=== PATIENT | female | born 1955 | race Caucasian/White ===

== ENCOUNTER 2017-08-08 20:22 | Emergency (ER) | payer BC ==
[2017-08-08 21:15] VITALS: BP 198/104
--- NOTE | 2017-08-08 22:15 | EDM.PDOC ---
ED HPI GENERAL MEDICAL PROBLEM - General Chief Complaint: [employer]MAN Problem Stated Complaint: VAGINAL BULGE Time Seen by Provider: 08/08/17 22:05 Source of Information: Reports: Patient History Limitations: Reports: No Limitations - History of Present Illness INITIAL COMMENTS - FREE TEXT/NARRATIVE: 62-year-old female who has had some slight irritation in the vaginal area over the past several days look down there with severe and noticed a bulge coming from the vagina. There is no significant pain. No fevers or chills. She had an CORPSMAN exam one year ago and nothing was mentioned. Onset: Unknown/Unsure Associated Symptoms: Reports: No Other Symptoms denies pain Pain Score (Numeric/FACES): 0 - Related Data Allergies Allergy/AdvReac Type Severity Reaction Status Date / Time lisinopril Allergy Rash Verified 08/08/17 21:45 Home Meds: Home Meds Acetaminophen/Butalbital/Caff [Fioricet 325-50-40 MG] 1 tab PO Q6H PRN 08/09/14 [History] Calcium Carbonate/Vitamin D3 [Calcium 500-Vit D3 200 Caplet] 1 tab PO DAILY [History] Hydrochlorothiazide [Hydrochlorothiazide] 25 mg PO DAILY 08/09/14 [History] Ketoconazole [Nizoral 2% Crm] 1 applic TOP DAILY 08/09/14 [History] Levothyroxine Sodium [Synthroid] 175 mcg PO DAILY 08/09/14 [History] Verapamil HCl 360 mg PO BEDTIME 08/09/14 [History] metroNIDAZOLE [metroNIDAZOLE 0.75% Cream] 1 applic TOP DAILY 08/09/14 [History] Past Medical History HEENT History: Reports: Impaired Vision Cardiovascular History: Reports: Hypertension Gastrointestinal History: Reports: Chronic Constipation CORPSMAN History: Reports: Neurological History: Reports: Migraines Endocrine/Metabolic History: Reports: Hypothyroidism Dermatologic History: Reports: Eczema - Infectious Disease History Infectious Disease History: Reports: Chicken Pox - Past Surgical History HEENT Surgical History: Reports: Other (See Below) Other HEENT Surgeries/Procedures: benign tumor removed below left ear GI Surgical History: Reports: Colonoscopy Female Surgical History: Reports: Hysterectomy Social & Family History - Tobacco Use Smoking Status *Q: Never Smoker - Caffeine Use Caffeine Use: Reports: Coffee, Soda - Alcohol Use Days Per Week of Alcohol Use: 0 - Recreational Drug Use Recreational Drug Use: No ED ROS GENERAL - Review of Systems Review Of Systems: See Below Constitutional: Denies: Fever, Chills Respiratory: Denies: Shortness of Breath Cardiovascular: Denies: Chest Pain GI/Abdominal: Denies: Abdominal Pain : Reports: Dysuria (Intermittent slight dysuria) Neurological: Reports: No Symptoms ED EXAM, RENAL/ - Physical Exam Exam: See Below Exam Limited By: No Limitations General Appearance: Alert, No Apparent Distress Respiratory/Chest: No Respiratory Distress GI/Abdominal: Non-Tender (Female) Exam: Other (On speculum exam the patient has a defective posterior vaginal wall with a rectocele) Neurological: Alert, Oriented Skin Exam: Warm, Dry Course - Vital Signs Last Recorded V/S: Last Vital Signs Temp 96.8 F 08/08/17 21:49 Pulse 114 H 08/08/17 21:49 Resp 16 08/08/17 21:49 BP 198/104 H 08/08/17 21:49 Pulse Ox 97 08/08/17 21:49 - Re-Assessments/Exams Free Text/Narrative Re-Assessment/Exam: 08/08/17 22:15 Patient has a good relationship with her [facility] doctor at [facility], and would like to discuss this with the provider. No emergent treatment is needed. Departure - Departure Time of Disposition: 22:32 Disposition: Home, Self-Care 01 Condition: Good Clinical Impression: Rectocele with incomplete uterovaginal prolapse - Discharge Information Instructions: Pelvic Organ Prolapse Referrals: Rubens Langford MD [Primary Care Provider] - Forms: ED Department Discharge Care Plan Goals: Make an appointment with your [employer]MAN to discuss treatment for a rectocele.
== END 2017-08-08 22:32 | disposition home or self-care (01) ==
LOC: JP.ED 20:22
DX: N81.2 Incomplete uterovaginal prolapse (principal); I10 Essential (primary) hypertension; E03.9 Hypothyroidism, unspecified; Z88.8 Allergy status to other drugs, medicaments and biological substances; Z79.899 Other long term (current) drug therapy; Z90.710 Acquired absence of both cervix and uterus
CPT/HCPCS: 99283

== ENCOUNTER 2017-12-31 20:33 | Emergency (ER) | payer BC ==
[2017-12-31 21:10] VITALS: BP 149/101
--- NOTE | 2017-12-31 21:20 | EDM.PDOC ---
ED HPI GENERAL MEDICAL PROBLEM - General Chief Complaint: Respiratory Problem Stated Complaint: BREATHING COMPLICATIONS Time Seen by Provider: 12/31/17 21:12 Source of Information: Reports: Patient, Family, RN Notes Reviewed History Limitations: Reports: No Limitations - History of Present Illness INITIAL COMMENTS - FREE TEXT/NARRATIVE: 62-year-old female presents to the emergency department complaint of cough and shortness of breath, she states is been ill for about 24 hours cough is dryand production has progressively gotten worse throughout the day, denies fevers nausea vomiting chest pain or GI symptomatology - Related Data Allergies Allergy/AdvReac Type Severity Reaction Status Date / Time lisinopril Allergy Rash Verified 12/31/17 20:56 Home Meds: Home Meds Acetaminophen/Butalbital/Caff [Fioricet 325-50-40 MG] 1 tab PO Q6H PRN 08/09/14 [History] Calcium Carbonate/Vitamin D3 [Calcium 500-Vit D3 200 Caplet] 1 tab PO DAILY [History] Hydrochlorothiazide 25 mg PO DAILY 08/09/14 [History] Ketoconazole [Nizoral 2% Crm] 1 applic TOP DAILY 08/09/14 [History] Levothyroxine Sodium [Synthroid] 175 mcg PO DAILY 08/09/14 [History] Verapamil HCl 360 mg PO BEDTIME 08/09/14 [History] metroNIDAZOLE [metroNIDAZOLE 0.75% Cream] 1 applic TOP DAILY 08/09/14 [History] Estrogens, Conjugated [Premarin Vaginal Crm] 12/31/17 [History] Hydrocodone/Acetaminophen [Hydrocodon-Acetaminophen 5-325] 12/31/17 [History] Past Medical History HEENT History: Reports: Impaired Vision Cardiovascular History: Reports: Hypertension Gastrointestinal History: Reports: Chronic Constipation [employer] History: Reports: Neurological History: Reports: Migraines Endocrine/Metabolic History: Reports: Hypothyroidism Dermatologic History: Reports: Eczema - Infectious Disease History Infectious Disease History: Reports: Chicken Pox - Past Surgical History HEENT Surgical History: Reports: Other (See Below) Other HEENT Surgeries/Procedures: benign tumor removed below left ear GI Surgical History: Reports: Colonoscopy Female Surgical History: Reports: Hysterectomy Social & Family History - Tobacco Use Smoking Status *Q: Never Smoker - Caffeine Use Caffeine Use: Reports: Coffee, Soda ED ROS GENERAL - Review of Systems Review Of Systems: See Below Constitutional: Denies: Fever, Chills HEENT: Reports: No Symptoms Respiratory: Reports: Shortness of Breath, Cough. Denies: Wheezing, Sputum Cardiovascular: Reports: Dyspnea on Exertion GI/Abdominal: Reports: No Symptoms : Reports: No Symptoms Musculoskeletal: Reports: No Symptoms Skin: Reports: No Symptoms Neurological: Reports: No Symptoms ED EXAM, GENERAL - Physical Exam Exam: See Below Free Text/Narrative:: General: Female, not in any distress, alert and oriented x3 HEENT: head is atraumatic normocephalic, eyes pupils equal round reactive to light, sclera clear no conjunctivitis appreciated. Ears tympanic membranes clear and chavis landmarks and light reflex are present bilaterally canals are clear. Nose no septal deviation, nares are clear, no blood present. Mouth mucosa is moist and pink no erythema or exudate noted in soft palate, tongue is midline uvula is midline, dentition is intact. Neck: Supple no thyromegaly no tracheal deviation. Nodes: Cervical nodes subclavicular nodes nontender no palpable lymphadenopathy noted. Lungs: clear to auscultation bilaterally with symmetrical respirations, no adventitious noise appreciated. CV: Regular rate and rhythm S1 and S2 appreciated no murmurs rubs or gallops noted. Abdomen: Soft, nontender, no palpable masses or organomegaly appreciated, no distention no guarding bowel sounds are present, Neuro: Cranial nerves II through XII grossly intact Skin: Warm and dry, intact Extremities: No lower extremity edema appreciated, Course - Vital Signs Text/Narrative:: curb-65 score is zero Last Recorded V/S: Last Vital Signs Temp 98.8 F 12/31/17 21:04 Pulse 114 H 12/31/17 21:04 Resp 20 12/31/17 21:04 BP 149/101 H 12/31/17 21:04 Pulse Ox 96 12/31/17 21:04 - Orders/Labs/Meds Orders: Active Orders 24 hr Category Date Time Status Chest 2V [CR] Urgent Exams 12/31/17 21:17 Taken UA W/MICROSCOPIC [URIN] Urgent Lab 12/31/17 22:16 Ordered Labs: Laboratory Tests 12/31/17 12/31/17 12/31/17 Range/Units 21:29 21:29 21:29 WBC 15.0 H (4.5-11.0) K/uL RBC 4.85 (3.30-5.50) M/uL Hgb 14.3 (12.0-15.0) g/dL Hct 43.4 (36.0-48.0) % MCV 90 (80-98) fL MCH 30 (27-31) pg MCHC 33 (32-36) % Plt Count 436 H (150-400) K/uL Neut % (Auto) 56 (36-66) % Lymph % (Auto) 31 (24-44) % Ross % (Auto) 12 H (2-6) % Eos % (Auto) 2 (2-4) % Baso % (Auto) 0 (0-1) % Sodium 138 L (140-148) mmol/L Potassium 3.7 (3.6-5.2) mmol/L Chloride 100 (100-108) mmol/L Carbon Dioxide 30 (21-32) mmol/L Anion Gap 11.7 (5.0-14.0) mmol/L BUN 11 (7-18) mg/dL Creatinine 0.9 (0.6-1.0) mg/dL Est Cr Clr Drug Dosing 61.45 mL/min Estimated GFR (MDRD) > 60 (>60) Glucose 112 H (74-106) mg/dL Lactic Acid 2.3 H (0.4-2.0) mmol/L Calcium 10.3 H (8.5-10.1) mg/dL Troponin I (0.000-0.056) ng/mL Urine Color Urine Appearance Urine pH (4.5-8.0) Ur Specific [place] (1.008-1.030) Urine Protein (NEGATIVE) mg/dL Urine Glucose (UA) (NEGATIVE) mg/dL Urine Ketones (NEGATIVE) mg/dL Urine Occult Blood (NEGATIVE) Urine Nitrite (NEGATIVE) Urine Bilirubin (NEGATIVE) Urine Urobilinogen (NORMAL) mg/dL Ur Leukocyte Esterase (NEGATIVE) Urine RBC (0-5) Urine WBC (0-5) Ur Epithelial Cells Amorphous Sediment Urine Bacteria Urine Mucus 12/31/17 12/31/17 Range/Units 21:29 22:16 WBC (4.5-11.0) K/uL RBC (3.30-5.50) M/uL Hgb (12.0-15.0) g/dL Hct (36.0-48.0) % MCV (80-98) fL MCH (27-31) pg MCHC (32-36) % Plt Count (150-400) K/uL Neut % (Auto) (36-66) % Lymph % (Auto) (24-44) % Ross % (Auto) (2-6) % Eos % (Auto) (2-4) % Baso % (Auto) (0-1) % Sodium (140-148) mmol/L Potassium (3.6-5.2) mmol/L Chloride (100-108) mmol/L Carbon Dioxide (21-32) mmol/L Anion Gap (5.0-14.0) mmol/L BUN (7-18) mg/dL Creatinine (0.6-1.0) mg/dL Est Cr Clr Drug Dosing mL/min Estimated GFR (MDRD) (>60) Glucose (74-106) mg/dL Lactic Acid (0.4-2.0) mmol/L Calcium (8.5-10.1) mg/dL Troponin I < 0.017 (0.000-0.056) ng/mL Urine Color Yellow Urine Appearance Clear Urine pH 7.0 (4.5-8.0) Ur Specific [place] 1.010 (1.008-1.030) Urine Protein Negative (NEGATIVE) mg/dL Urine Glucose (UA) Normal (NEGATIVE) mg/dL Urine Ketones Negative (NEGATIVE) mg/dL Urine Occult Blood Large (NEGATIVE) Urine Nitrite Negative (NEGATIVE) Urine Bilirubin Negative (NEGATIVE) Urine Urobilinogen Normal (NORMAL) mg/dL Ur Leukocyte Esterase Large (NEGATIVE) Urine RBC 30-40 H (0-5) Urine WBC 0-5 (0-5) Ur Epithelial Cells Rare Amorphous Sediment Not seen Urine Bacteria Few Urine Mucus Few Departure - Departure Time of Disposition: 22:43 Disposition: Home, Self-Care 01 Condition: Good Clinical Impression: Bronchitis after surgery - Discharge Information Referrals: Rubens Langford MD [Primary Care Provider] - Forms: ED Department Discharge Additional Instructions: Take full course of antibiotics, Please followup with your primary care provider in 3-5 days if not better, please call return to the emergency department with worsening of symptoms. - My Orders Last 24 Hours: My Active Orders 12/31/17 21:17 Chest 2V [CR] Urgent 12/31/17 22:16 UA W/MICROSCOPIC [URIN] Urgent - Assessment/Plan Last 24 Hours: My Active Orders 12/31/17 21:17 Chest 2V [CR] Urgent 12/31/17 22:16 UA W/MICROSCOPIC [URIN] Urgent Plan: Assessment Acuity = acute Site and laterality = bronchitis Etiology = suspect bacterial cause Manifestations = dyspnea Location of injury = Home Lab values = WBC elevated 15.0 consistent leukocytosis, lactic acid elevated 2.3 consistent lactic acidosis, remainder BMP unremarkable urinalysis feels 30- 40 rbc's consistent hematuria chest x-ray I did review films myself I cannot appreciate any acute process, the official read from radiology is pending Plan Elected treat empirically with azithromycin 5 day course, Robitussin-AC 10 mL by mouth every 4-6 hours when necessary 120 mL bottle, follow-up primary care 3- 5 days if no improvement This note was dictated using [employer] voice recognition software please call with any questions on syntax or grammar.
--- NOTE | 2018-01-01 10:26 | CR ---
CHEST: 2 view CLINICAL HISTORY:Cough, SOB COMPARISON:None FINDINGS: Heart size and pulmonary vascularity are normal. No infiltrate effusion or pneumothorax is seen Impression: No acute cardiopulmonary process.
== END 2017-12-31 22:54 | disposition home or self-care (01) ==
LOC: JP.ED 20:33
DX: J40 Bronchitis, not specified as acute or chronic (principal); I10 Essential (primary) hypertension; E03.9 Hypothyroidism, unspecified; Z88.8 Allergy status to other drugs, medicaments and biological substances; Z79.899 Other long term (current) drug therapy
CPT/HCPCS: 36415; 71046; 71046-26; 80048; 81001; 83605; 84484; 85025; 99284

== ENCOUNTER 2020-03-29 09:28 | Emergency (ER) | payer BC, OTHER ==
[2020-03-29] MEDS ORDERED: Albuterol 0.083% 2.5 MG/3 ML Neb Soln NEB ONE ×2 (10:06→14:12)
--- NOTE | 2020-03-29 10:07 | EDM.PDOC ---
ED HPI GENERAL MEDICAL PROBLEM - General Chief Complaint: General Stated Complaint: COUGH Time Seen by Provider: 03/29/20 10:07 Source of Information: Reports: Patient History Limitations: Reports: No Limitations - History of Present Illness INITIAL COMMENTS - FREE TEXT/NARRATIVE: pt has had a 3 week illness and has had 2 zpcks and 2 vertual visits. She is now having a almost continuouis dry cough. She does not have a fever. She is mildly nauiseated but not vomiting. She has no pain in her chest. Onset: Other (pt has alot more coughing today. ) Duration: Hour(s): Location: Reports: Chest, Generalized Associated Symptoms: Reports: Cough, Weakness - Related Data Allergies Allergy/AdvReac Type Severity Reaction Status Date / Time lisinopril Allergy Rash Verified 03/29/20 09:43 Home Meds: Home Meds Acetaminophen/Butalbital/Caff [Fioricet 325-50-40 MG] 1 tab PO Q6H PRN 08/09/14 [History] Calcium Carbonate/Vitamin D3 [Calcium 500-Vit D3 200 Caplet] 1 tab PO DAILY 08/09/14 [History] Hydrochlorothiazide 25 mg PO DAILY 08/09/14 [History] Ketoconazole [Nizoral 2% Crm] 1 applic TOP DAILY 08/09/14 [History] Levothyroxine Sodium [Synthroid] 175 mcg PO DAILY 08/09/14 [History] Verapamil HCl 360 mg PO BEDTIME 08/09/14 [History] metroNIDAZOLE [metroNIDAZOLE 0.75% Cream] 1 applic TOP DAILY 08/09/14 [History] Estrogens, Conjugated [Premarin Vaginal Crm] 1 dose TOP DAILY 12/31/17 [History] Past Medical History HEENT History: Reports: Impaired Vision Cardiovascular History: Reports: Hypertension Gastrointestinal History: Reports: Chronic Constipation Genitourinary History: Reports: None 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: Neurological History: Reports: Migraines Endocrine/Metabolic History: Reports: Hypothyroidism, Obesity/BMI 30+ Hematologic History: Reports: Blood Transfusion(s) Dermatologic History: Reports: Eczema - Infectious Disease History Infectious Disease History: Reports: Measles, Mumps - Past Surgical History Head Surgeries/Procedures: Reports: None HEENT Surgical History: Reports: Eye Surgery, Tonsillectomy, Other (See Below) Other HEENT Surgeries/Procedures: benign tumor removed below left ear Cardiovascular Surgical History: Reports: None GI Surgical History: Reports: Colonoscopy Female Surgical History: Reports: Hysterectomy Endocrine Surgical History: Reports: None Neurological Surgical History: Reports: None Dermatological Surgical History: Reports: None Social & Family History - Tobacco Use Smoking Status *Q: Never Smoker Second Hand Smoke Exposure: No - Caffeine Use Caffeine Use: Reports: Coffee, Soda - Recreational Drug Use Recreational Drug Use: No ED ROS GENERAL - Review of Systems Review Of Systems: See Below Constitutional: Reports: Malaise HEENT: Reports: No Symptoms Respiratory: Reports: Shortness of Breath, Cough Cardiovascular: Reports: No Symptoms Endocrine: Reports: No Symptoms GI/Abdominal: Reports: Nausea : Reports: No Symptoms Musculoskeletal: Reports: No Symptoms, Muscle Pain Neurological: Reports: Dizziness Psychiatric: Reports: No Symptoms ED EXAM, GENERAL - Physical Exam Exam: See Below Free Text/Narrative:: pt woke up feeling dizzy or liteheaded. She was mildly nauseated. She had a almost continuous dry nonproductive cough. Pt has been coughing for the past 3 weeks and she has had 2 vertual visits and 2 zpacks. Exam Limited By: No Limitations General Appearance: Alert, Mild Distress, Other (pupils are equal and reactive. ) Ears: Normal TMs Nose: Normal Inspection Throat/Mouth: Normal Inspection Head: Atraumatic Neck: Normal Inspection Respiratory/Chest: Decreased Breath Sounds, Wheezing Cardiovascular: Regular Rate, Rhythm, Tachycardia GI/Abdominal: Soft, Non-Tender Rectal (Female) Exam: Deferred Back Exam: Normal Inspection Extremities: Normal Inspection Neurological: Alert, Oriented, Normal Cognition Psychiatric: Anxious Course - Vital Signs Last Recorded V/S: Last Vital Signs Temp 36.6 C 03/29/20 09:46 Pulse 94 03/29/20 12:48 Resp 24 H 03/29/20 12:48 BP 141/77 H 03/29/20 12:48 Pulse Ox 94 L 03/29/20 12:48 Orthostatic Blood Pressure [ 111/77 Standing] Orthostatic Blood Pressure [ 127/79 Sitting] Orthostatic Blood Pressure [ 140/86 Supine] - Orders/Labs/Meds Orders: Active Orders 24 hr Category Date Time Status Orthostatic Vital Signs [RC] ASDIRECTED Care 03/29/20 10:05 Active RT Aerosol Therapy [RC] ASDIRECTED Care 03/29/20 10:06 Active RT Aerosol Therapy [RC] ASDIRECTED Care 03/29/20 14:12 Active Chest 2V [CR] Stat Exams 03/29/20 10:05 Taken CULTURE BLOOD [BC] Urgent Lab 03/29/20 10:50 Received CULTURE BLOOD [BC] Urgent Lab 03/29/20 10:55 Received CULTURE URINE [RM] Stat Lab 03/29/20 11:35 Received Acetaminophen [TylenoL] Med 03/29/20 11:42 Active 650 mg PO BEDTIME PRN Sodium Chloride 0.9% [Normal Saline] 1,000 ml Med 03/29/20 10:45 Active IV ASDIRECTED Sodium Chloride 0.9% [Normal Saline] 1,000 ml Med 03/29/20 12:45 Active IV ASDIRECTED Blood Culture x2 Reflex Set [OM.PC] Urgent Oth 03/29/20 10:34 Ordered Medication Orders Acetaminophen (Tylenol) 650 mg PO BEDTIME PRN PRN Reason: Anxiety Last Admin: 03/29/20 11:46 Dose: 650 mg Documented by: MARCOSIAN Sodium Chloride (Normal Saline) 1,000 mls @ 999 mls/hr IV ASDIRECTED VINH Last Admin: 03/29/20 10:56 Dose: 999 mls/hr Documented by: MARCOSIAN Sodium Chloride (Normal Saline) 1,000 mls @ 999 mls/hr IV ASDIRECTED VINH Last Admin: 03/29/20 12:47 Dose: 999 mls/hr Documented by: CINTHIA Labs: Laboratory Tests 03/29/20 03/29/20 03/29/20 Range/Units 10:18 10:18 10:18 WBC (4.5-11.0) K/uL RBC (3.30-5.50) M/uL Hgb (12.0-15.0) g/dL Hct (36.0-48.0) % MCV (80-98) fL MCH (27-31) pg MCHC (32-36) % Plt Count (150-400) K/uL Neut % (Auto) (36-66) % Lymph % (Auto) (24-44) % [place] % (Auto) (2-6) % Eos % (Auto) (2-4) % Baso % (Auto) (0-1) % Neutrophils % (Manual) 81 H (36-66) % Band Neutrophils % 3 L (5-11) % Lymphocytes % (Manual) 6 L (24-44) % Monocytes % (Manual) 10 H (2-6) % WBC Morphology Comment RBC Morph Comment D-Dimer, Quantitative 269 (0.0-400.0) ng/mL Sodium (140-148) mmol/L Potassium (3.6-5.2) mmol/L Chloride (100-108) mmol/L Carbon Dioxide (21-32) mmol/L Anion Gap (5.0-14.0) mmol/L BUN (7-18) mg/dL Creatinine (0.6-1.0) mg/dL Est Cr Clr Drug Dosing mL/min Estimated GFR (MDRD) (>60) Glucose (74-106) mg/dL Lactic Acid (0.4-2.0) mmol/L Calcium (8.5-10.1) mg/dL Total Bilirubin (0.2-1.0) mg/dL Direct Bilirubin (0.0-0.2) mg/dL Indirect Bilirubin AST (15-37) U/L ALT (12-78) U/L Alkaline Phosphatase (46-116) U/L C-Reactive Protein (0.0-0.3) mg/dL Total Protein (6.4-8.2) g/dL Albumin (3.4-5.0) g/dL Globulin (2.3-3.5) g/dL Albumin/Globulin Ratio (1.2-2.2) Procalcitonin 0.11 ng/mL TSH, Ultra Sensitive (0.358-3.740) uIU/mL Urine Color (YELLOW) Urine Appearance (CLEAR) Urine pH (5.0-8.0) Ur Specific [place] (1.008-1.030) Urine Protein (NEGATIVE) mg/dL Urine Glucose (UA) (NEGATIVE) mg/dL Urine Ketones (NEGATIVE) mg/dL Urine Occult Blood (NEGATIVE) Urine Nitrite (NEGATIVE) Urine Bilirubin (NEGATIVE) Urine Urobilinogen (0.2-1.0) EU/dL Ur Leukocyte Esterase (NEGATIVE) Urine RBC (0-5) Urine WBC (0-5) Ur Epithelial Cells Amorphous Sediment Urine Bacteria Urine Mucus SARS-CoV-2 RNA (MARY) (NEGATIVE) 03/29/20 03/29/20 03/29/20 Range/Units 10:22 10:22 10:22 WBC 34.2 H* (4.5-11.0) K/uL RBC 4.97 (3.30-5.50) M/uL Hgb 14.5 (12.0-15.0) g/dL Hct 43.6 (36.0-48.0) % MCV 88 (80-98) fL MCH 29 (27-31) pg MCHC 33 (32-36) % Plt Count 415 H (150-400) K/uL Neut % (Auto) 83 H (36-66) % Lymph % (Auto) 8 L (24-44) % [place] % (Auto) 8 H (2-6) % Eos % (Auto) 0 L (2-4) % Baso % (Auto) 0 (0-1) % Neutrophils % (Manual) (36-66) % Band Neutrophils % (5-11) % Lymphocytes % (Manual) (24-44) % Monocytes % (Manual) (2-6) % WBC Morphology Comment RBC Morph Comment D-Dimer, Quantitative (0.0-400.0) ng/mL Sodium 134 L (140-148) mmol/L Potassium 3.8 (3.6-5.2) mmol/L Chloride 96 L (100-108) mmol/L Carbon Dioxide 25 (21-32) mmol/L Anion Gap 16.8 H (5.0-14.0) mmol/L BUN 18 D (7-18) mg/dL Creatinine 0.9 (0.6-1.0) mg/dL Est Cr Clr Drug Dosing 56.82 mL/min Estimated GFR (MDRD) > 60 (>60) Glucose 111 H (74-106) mg/dL Lactic Acid (0.4-2.0) mmol/L Calcium 9.2 (8.5-10.1) mg/dL Total Bilirubin (0.2-1.0) mg/dL Direct Bilirubin (0.0-0.2) mg/dL Indirect Bilirubin AST (15-37) U/L ALT (12-78) U/L Alkaline Phosphatase (46-116) U/L C-Reactive Protein (0.0-0.3) mg/dL Total Protein (6.4-8.2) g/dL Albumin (3.4-5.0) g/dL Globulin (2.3-3.5) g/dL Albumin/Globulin Ratio (1.2-2.2) Procalcitonin ng/mL TSH, Ultra Sensitive 1.830 (0.358-3.740) uIU/mL Urine Color (YELLOW) Urine Appearance (CLEAR) Urine pH (5.0-8.0) Ur Specific [place] (1.008-1.030) Urine Protein (NEGATIVE) mg/dL Urine Glucose (UA) (NEGATIVE) mg/dL Urine Ketones (NEGATIVE) mg/dL Urine Occult Blood (NEGATIVE) Urine Nitrite (NEGATIVE) Urine Bilirubin (NEGATIVE) Urine Urobilinogen (0.2-1.0) EU/dL Ur Leukocyte Esterase (NEGATIVE) Urine RBC (0-5) Urine WBC (0-5) Ur Epithelial Cells Amorphous Sediment Urine Bacteria Urine Mucus SARS-CoV-2 RNA (MARY) (NEGATIVE) 03/29/20 03/29/20 03/29/20 Range/Units 10:35 10:48 10:52 WBC (4.5-11.0) K/uL RBC (3.30-5.50) M/uL Hgb (12.0-15.0) g/dL Hct (36.0-48.0) % MCV (80-98) fL MCH (27-31) pg MCHC (32-36) % Plt Count (150-400) K/uL Neut % (Auto) (36-66) % Lymph % (Auto) (24-44) % [place] % (Auto) (2-6) % Eos % (Auto) (2-4) % Baso % (Auto) (0-1) % Neutrophils % (Manual) (36-66) % Band Neutrophils % (5-11) % Lymphocytes % (Manual) (24-44) % Monocytes % (Manual) (2-6) % WBC Morphology Comment RBC Morph Comment D-Dimer, Quantitative (0.0-400.0) ng/mL Sodium (140-148) mmol/L Potassium (3.6-5.2) mmol/L Chloride (100-108) mmol/L Carbon Dioxide (21-32) mmol/L Anion Gap (5.0-14.0) mmol/L BUN (7-18) mg/dL Creatinine (0.6-1.0) mg/dL Est Cr Clr Drug Dosing mL/min Estimated GFR (MDRD) (>60) Glucose (74-106) mg/dL Lactic Acid 2.1 H (0.4-2.0) mmol/L Calcium (8.5-10.1) mg/dL Total Bilirubin 0.5 (0.2-1.0) mg/dL Direct Bilirubin 0.15 (0.0-0.2) mg/dL Indirect Bilirubin 0.35 AST 23 (15-37) U/L ALT 29 (12-78) U/L Alkaline Phosphatase 84 (46-116) U/L C-Reactive Protein 2.41 H (0.0-0.3) mg/dL Total Protein 8.2 (6.4-8.2) g/dL Albumin 3.8 (3.4-5.0) g/dL Globulin 4.4 H (2.3-3.5) g/dL Albumin/Globulin Ratio 0.9 L (1.2-2.2) Procalcitonin ng/mL TSH, Ultra Sensitive (0.358-3.740) uIU/mL Urine Color (YELLOW) Urine Appearance (CLEAR) Urine pH (5.0-8.0) Ur Specific [place] (1.008-1.030) Urine Protein (NEGATIVE) mg/dL Urine Glucose (UA) (NEGATIVE) mg/dL Urine Ketones (NEGATIVE) mg/dL Urine Occult Blood (NEGATIVE) Urine Nitrite (NEGATIVE) Urine Bilirubin (NEGATIVE) Urine Urobilinogen (0.2-1.0) EU/dL Ur Leukocyte Esterase (NEGATIVE) Urine RBC (0-5) Urine WBC (0-5) Ur Epithelial Cells Amorphous Sediment Urine Bacteria Urine Mucus SARS-CoV-2 RNA (MARY) (NEGATIVE) 03/29/20 03/29/20 Range/Units 11:09 11:35 WBC (4.5-11.0) K/uL RBC (3.30-5.50) M/uL Hgb (12.0-15.0) g/dL Hct (36.0-48.0) % MCV (80-98) fL MCH (27-31) pg MCHC (32-36) % Plt Count (150-400) K/uL Neut % (Auto) (36-66) % Lymph % (Auto) (24-44) % [place] % (Auto) (2-6) % Eos % (Auto) (2-4) % Baso % (Auto) (0-1) % Neutrophils % (Manual) (36-66) % Band Neutrophils % (5-11) % Lymphocytes % (Manual) (24-44) % Monocytes % (Manual) (2-6) % WBC Morphology Comment RBC Morph Comment D-Dimer, Quantitative (0.0-400.0) ng/mL Sodium (140-148) mmol/L Potassium (3.6-5.2) mmol/L Chloride (100-108) mmol/L Carbon Dioxide (21-32) mmol/L Anion Gap (5.0-14.0) mmol/L BUN (7-18) mg/dL Creatinine (0.6-1.0) mg/dL Est Cr Clr Drug Dosing mL/min Estimated GFR (MDRD) (>60) Glucose (74-106) mg/dL Lactic Acid (0.4-2.0) mmol/L Calcium (8.5-10.1) mg/dL Total Bilirubin (0.2-1.0) mg/dL Direct Bilirubin (0.0-0.2) mg/dL Indirect Bilirubin AST (15-37) U/L ALT (12-78) U/L Alkaline Phosphatase (46-116) U/L C-Reactive Protein (0.0-0.3) mg/dL Total Protein (6.4-8.2) g/dL Albumin (3.4-5.0) g/dL Globulin (2.3-3.5) g/dL Albumin/Globulin Ratio (1.2-2.2) Procalcitonin ng/mL TSH, Ultra Sensitive (0.358-3.740) uIU/mL Urine Color Yellow (YELLOW) Urine Appearance Cloudy A (CLEAR) Urine pH 5.5 (5.0-8.0) Ur Specific [place] >= 1.030 (1.008-1.030) Urine Protein Negative (NEGATIVE) mg/dL Urine Glucose (UA) Negative (NEGATIVE) mg/dL Urine Ketones Negative (NEGATIVE) mg/dL Urine Occult Blood Trace-intact H (NEGATIVE) Urine Nitrite Negative (NEGATIVE) Urine Bilirubin Negative (NEGATIVE) Urine Urobilinogen 0.2 (0.2-1.0) EU/dL Ur Leukocyte Esterase Small H (NEGATIVE) Urine RBC 0-5 (0-5) Urine WBC 5-10 H (0-5) Ur Epithelial Cells Moderate Amorphous Sediment Not seen Urine Bacteria Moderate Urine Mucus Moderate SARS-CoV-2 RNA (MARY) Negative (NEGATIVE) Meds: Medications Generic Name Dose Route Start Last Admin Trade Name Freq PRN Reason Stop Dose Admin Acetaminophen 650 mg 03/29/20 11:42 03/29/20 11:46 Tylenol PO 650 mg BEDTIME PRN Administration Anxiety Sodium Chloride 1,000 mls @ 999 mls/hr 03/29/20 10:45 03/29/20 10:56 Normal Saline IV 999 mls/hr ASDIRECTED VINH Administration Sodium Chloride 1,000 mls @ 999 mls/hr 03/29/20 12:45 03/29/20 12:47 Normal Saline IV 999 mls/hr ASDIRECTED VINH Administration Discontinued Medications Generic Name Dose Route Start Last Admin Trade Name Freq PRN Reason Stop Dose Admin Albuterol 2.5 mg 03/29/20 10:06 03/29/20 10:13 Proventil Neb Soln NEB 03/29/20 10:07 2.5 mg ONETIME ONE Administration Albuterol 2.5 mg 03/29/20 14:12 03/29/20 14:32 Proventil Neb Soln NEB 03/29/20 14:13 2.5 mg ONETIME ONE Administration Benzonatate 200 mg 03/29/20 12:34 03/29/20 12:43 Tessalon Perles PO 03/29/20 12:35 200 mg ONETIME ONE Administration - Re-Assessments/Exams Free Text/Narrative Re-Assessment/Exam: 03/29/20 11:04 pt was found to have a very high wbc at 34,000. She had a chest xray that was clear. Her lactic acid was just borderline. 03/29/20 12:55 pt had a covid 19 test that was neg. A cat scan of the chest was done which results are pending. 03/29/20 13:19 cat scan of the chest is neg. Departure - Departure Time of Disposition: 15:05 Disposition: Home, Self-Care 01 Condition: Fair Clinical Impression: Elevated WBC count, Cough - Discharge Information Referrals: Rubens Langford MD [Primary Care Provider] - Forms: ED Department Discharge Care Plan Goals: push fluids, cool mist humidifier, albuterol inhaler 2 puffs with a associate professor of communication abhishek, kerwin goodwin 1 tab tid for cough, will notify of the urine culturenorco 5/325 q6h prn for the headache. #4 rtc tomorrow for ER for wbc and diff Sepsis Event Note (ED) - Evaluation Sepsis Screening Result: Possible Sepsis Risk - Focused Exam Vital Signs: Vital Signs Temp Pulse Resp BP Pulse Ox 03/29/20 12:48 94 24 H 141/77 H 94 L 03/29/20 10:00 112 H 16 152/91 H 03/29/20 09:46 36.6 C 119 H 16 93/75 95 03/29/20 09:40 36.6 C 119 H 16 93/75 95 - My Orders Last 24 Hours: My Active Orders 03/29/20 10:05 Orthostatic Vital Signs [RC] ASDIRECTED Chest 2V [CR] Stat 03/29/20 10:06 RT Aerosol Therapy [RC] ASDIRECTED 03/29/20 10:34 Blood Culture x2 Reflex Set [OM.PC] Urgent 03/29/20 10:45 Sodium Chloride 0.9% [Normal Saline] 1,000 ml IV ASDIRECTED 03/29/20 10:50 CULTURE BLOOD [BC] Urgent 03/29/20 10:55 CULTURE BLOOD [BC] Urgent 03/29/20 11:35 CULTURE URINE [RM] Stat 03/29/20 11:42 Acetaminophen [TylenoL] 650 mg PO BEDTIME PRN 03/29/20 12:45 Sodium Chloride 0.9% [Normal Saline] 1,000 ml IV ASDIRECTED 03/29/20 14:12 RT Aerosol Therapy [RC] ASDIRECTED - Assessment/Plan Last 24 Hours: My Active Orders 03/29/20 10:05 Orthostatic Vital Signs [RC] ASDIRECTED Chest 2V [CR] Stat 03/29/20 10:06 RT Aerosol Therapy [RC] ASDIRECTED 03/29/20 10:34 Blood Culture x2 Reflex Set [OM.PC] Urgent 03/29/20 10:45 Sodium Chloride 0.9% [Normal Saline] 1,000 ml IV ASDIRECTED 03/29/20 10:50 CULTURE BLOOD [BC] Urgent 03/29/20 10:55 CULTURE BLOOD [BC] Urgent 03/29/20 11:35 CULTURE URINE [RM] Stat 03/29/20 11:42 Acetaminophen [TylenoL] 650 mg PO BEDTIME PRN 03/29/20 12:45 Sodium Chloride 0.9% [Normal Saline] 1,000 ml IV ASDIRECTED 03/29/20 14:12 RT Aerosol Therapy [RC] ASDIRECTED
[2020-03-29] MEDS ORDERED: Sodium Chloride 0.9% 1,000 ML IV SCH ×2 (10:45→12:45)
[2020-03-29] MEDS ORDERED: Acetaminophen 325 MG Tab PO PRN (11:42)
[2020-03-29] MEDS ORDERED: Benzonatate 100 MG Cap PO ONE (12:34)
[2020-03-29 12:48] VITALS: BP 141/77; PULSE 94
--- NOTE | 2020-03-29 13:12 | CRLCT ---
INDICATION: Cough and leukocytosis TECHNIQUE: CT chest without contrast. COMPARISON: None FINDINGS: Lungs and pleura: No suspicious nodules or infiltrates. Small left lateral calcified granuloma present. No pleural effusions, pleural thickening, or pneumothorax. Heart and vasculature: Heart size is normal. Thoracic aorta and pulmonary artery are normal in caliber.Coronary artery atherosclerosis is present. Lymph nodes/mediastinum: No mediastinal, hilar, or axillary adenopathy. Status post thyroidectomy. Chest wall: No masses. Upper abdomen: Normal. Bones: Unremarkable for age. IMPRESSION: 1. Lungs and pleural spaces are clear. No sign of pneumonia. No finding to explain cough for leukocytosis. 2. Coronary artery atherosclerosis. 3. Remainder of the exam is unremarkable. Dictated by Joon Rueda MD @ 03/29/2020 1:10:47 PM Dictated by: Joon Rueda MD @ 03/29/2020 13:10:53 (Electronically Signed)
--- NOTE | 2020-03-29 17:13 | PCM.CONS ---
H&P History of Present Illness - General Date of Service: 03/29/20 Source of Information: Patient, Family, Provider, RN Notes Reviewed History Limitations: Reports: No Limitations - History of Present Illness Initial Comments - Free Text/Narative: Ms. Jasmine is a 65-year-old woman who I been asked to see by Dr. Harry in the emergency department for evaluation of cough, weakness, and leukocytosis. Ms. Jasmine reports that she has experienced a dry nonproductive cough that originates her throat over the past month. She has received 2 courses of azithromycin without significant improvement in her symptoms. She felt well yesterday other than her ongoing cough. This morning she noted additional symptoms of weakness, lightheadedness, low-grade fever, and headache. She presented to the emergency department for further evaluation. She is COVID negative and CT scan of the chest without contrast showed no obvious infiltrates or evidence of edema. She has had no nuchal rigidity and has been afebrile while in the emergency department white blood cell count was obtained and found to be markedly elevated at 34,200. Her obvious evidence of localized infection has been identified. She feels improved after receiving IV fluids. Of interest is her has very similar symptoms and also significant elevation in white blood cell count. - Related Data Allergies/Adverse Reactions: Allergies Allergy/AdvReac Type Severity Reaction Status Date / Time lisinopril Allergy Rash Verified 03/29/20 09:43 Home Medications: Home Meds Acetaminophen/Butalbital/Caff [Fioricet 325-50-40 MG] 1 tab PO Q6H PRN 08/09/14 [History] Calcium Carbonate/Vitamin D3 [Calcium 500-Vit D3 200 Caplet] 1 tab PO DAILY 08/09/14 [History] Hydrochlorothiazide 25 mg PO DAILY 08/09/14 [History] Ketoconazole [Nizoral 2% Crm] 1 applic TOP DAILY 08/09/14 [History] Levothyroxine Sodium [Synthroid] 175 mcg PO DAILY 08/09/14 [History] Verapamil HCl 360 mg PO BEDTIME 08/09/14 [History] metroNIDAZOLE [metroNIDAZOLE 0.75% Cream] 1 applic TOP DAILY 08/09/14 [History] Estrogens, Conjugated [Premarin Vaginal Crm] 1 dose TOP DAILY 12/31/17 [History] Past Medical History HEENT History: Reports: Impaired Vision Cardiovascular History: Reports: Hypertension Gastrointestinal History: Reports: Chronic Constipation Genitourinary History: Reports: None [employer] History: Reports: Neurological History: Reports: Migraines Endocrine/Metabolic History: Reports: Hypothyroidism, Obesity/BMI 30+ Hematologic History: Reports: Blood Transfusion(s) Dermatologic History: Reports: Eczema - Infectious Disease History Infectious Disease History: Reports: Measles, Mumps - Past Surgical History Head Surgeries/Procedures: Reports: None HEENT Surgical History: Reports: Eye Surgery, Tonsillectomy, Other (See Below) Other HEENT Surgeries/Procedures: benign tumor removed below left ear Cardiovascular Surgical History: Reports: None GI Surgical History: Reports: Colonoscopy Female Surgical History: Reports: Hysterectomy Endocrine Surgical History: Reports: None Neurological Surgical History: Reports: None Dermatological Surgical History: Reports: None Social & Family History - Tobacco Use Smoking Status *Q: Never Smoker Second Hand Smoke Exposure: No - Caffeine Use Caffeine Use: Reports: Coffee, Soda - Recreational Drug Use Recreational Drug Use: No H&P Review of Systems - Review of Systems: Review Of Systems: See Below General: Reports: Fever, Weakness, Decreased Appetite. Denies: Chills HEENT: Reports: Headaches. Denies: Dysphasia, Rhinitis, Sinus Congestion, Sore Throat Pulmonary: Reports: Cough. Denies: Shortness of Breath, Wheezing, Pleuritic Chest Pain, Sputum, Hemoptysis Cardiovascular: Reports: No Symptoms Gastrointestinal: Reports: Nausea. Denies: Abdominal Pain, Constipation, Diarrhea, Difficulty Swallowing, Distension, Hematemesis, Hematochezia, Melena, Vomiting Genitourinary: Reports: No Symptoms Musculoskeletal: Reports: No Symptoms Skin: Reports: No Symptoms Psychiatric: Reports: No Symptoms Neurological: Reports: No Symptoms Hematologic/Lymphatic: Reports: No Symptoms Immunologic: Reports: No Symptoms Exam - Exam Exam: See Below - Vital Signs Vital Signs: Last Vital Signs Temp 97.9 F 03/29/20 09:46 Pulse 94 03/29/20 12:48 Resp 24 H 03/29/20 12:48 BP 141/77 H 03/29/20 12:48 Pulse Ox 94 L 03/29/20 12:48 Orthostatic Blood Pressure [ 111/77 Standing] Orthostatic Blood Pressure [ 127/79 Sitting] Orthostatic Blood Pressure [ 140/86 Supine] Weight: 181 lb 14.102 oz - Exam Quality Assessment: Supplemental Oxygen, DVT Prophylaxis General: Alert, Oriented, Cooperative, Mild Distress HEENT: Conjunctiva Clear, Hearing Intact, Mucosa Moist & [place], Normal Nasal Septum, Posterior Pharynx Clear, Pupils Equal Neck: Supple, Trachea Midline, +2 Carotid Pulse wo Bruit Lungs: Clear to Auscultation, Normal Respiratory Effort Cardiovascular: Regular Rate, Regular Rhythm, Normal S1, Normal S2. No: Systolic Murmur, Diastolic Murmur GI/Abdominal Exam: Soft, Non-Tender, No Organomegaly, No Distention Back Exam: Normal Inspection, Full Range of Motion Extremities: Non-Tender, No Pedal Edema Skin: Warm, Dry, Intact Neurological: Cranial Nerves Intact, Strength Equal Bilateral, Normal Speech, Normal Tone, Sensation Intact. No: Focal Deficit Neuro Extensive - Mental Status: Alert, Oriented x3, Normal Mood/Affect, Normal Cognition, Memory Intact - Patient Data Lab Results Last 24 hrs: Laboratory Results - last 24 hr 03/29/20 03/29/20 03/29/20 Range/Units 10:18 10:18 10:18 WBC (4.5-11.0) K/uL RBC (3.30-5.50) M/uL Hgb (12.0-15.0) g/dL Hct (36.0-48.0) % MCV (80-98) fL MCH (27-31) pg MCHC (32-36) % Plt Count (150-400) K/uL Neut % (Auto) (36-66) % Lymph % (Auto) (24-44) % Sebastian % (Auto) (2-6) % Eos % (Auto) (2-4) % Baso % (Auto) (0-1) % Neutrophils % (Manual) 81 H (36-66) % Band Neutrophils % 3 L (5-11) % Lymphocytes % (Manual) 6 L (24-44) % Monocytes % (Manual) 10 H (2-6) % WBC Morphology Comment RBC Morph Comment D-Dimer, Quantitative 269 (0.0-400.0) ng/mL Sodium (140-148) mmol/L Potassium (3.6-5.2) mmol/L Chloride (100-108) mmol/L Carbon Dioxide (21-32) mmol/L Anion Gap (5.0-14.0) mmol/L BUN (7-18) mg/dL Creatinine (0.6-1.0) mg/dL Est Cr Clr Drug Dosing mL/min Estimated GFR (MDRD) (>60) Glucose (74-106) mg/dL Lactic Acid (0.4-2.0) mmol/L Calcium (8.5-10.1) mg/dL Total Bilirubin (0.2-1.0) mg/dL Direct Bilirubin (0.0-0.2) mg/dL Indirect Bilirubin AST (15-37) U/L ALT (12-78) U/L Alkaline Phosphatase (46-116) U/L C-Reactive Protein (0.0-0.3) mg/dL Total Protein (6.4-8.2) g/dL Albumin (3.4-5.0) g/dL Globulin (2.3-3.5) g/dL Albumin/Globulin Ratio (1.2-2.2) Procalcitonin 0.11 ng/mL TSH, Ultra Sensitive (0.358-3.740) uIU/mL Urine Color (YELLOW) Urine Appearance (CLEAR) Urine pH (5.0-8.0) Ur Specific [place] (1.008-1.030) Urine Protein (NEGATIVE) mg/dL Urine Glucose (UA) (NEGATIVE) mg/dL Urine Ketones (NEGATIVE) mg/dL Urine Occult Blood (NEGATIVE) Urine Nitrite (NEGATIVE) Urine Bilirubin (NEGATIVE) Urine Urobilinogen (0.2-1.0) EU/dL Ur Leukocyte Esterase (NEGATIVE) Urine RBC (0-5) Urine WBC (0-5) Ur Epithelial Cells Amorphous Sediment Urine Bacteria Urine Mucus SARS-CoV-2 RNA (MARY) (NEGATIVE) 03/29/20 03/29/20 03/29/20 Range/Units 10:22 10:22 10:22 WBC 34.2 H* (4.5-11.0) K/uL RBC 4.97 (3.30-5.50) M/uL Hgb 14.5 (12.0-15.0) g/dL Hct 43.6 (36.0-48.0) % MCV 88 (80-98) fL MCH 29 (27-31) pg MCHC 33 (32-36) % Plt Count 415 H (150-400) K/uL Neut % (Auto) 83 H (36-66) % Lymph % (Auto) 8 L (24-44) % Sebastian % (Auto) 8 H (2-6) % Eos % (Auto) 0 L (2-4) % Baso % (Auto) 0 (0-1) % Neutrophils % (Manual) (36-66) % Band Neutrophils % (5-11) % Lymphocytes % (Manual) (24-44) % Monocytes % (Manual) (2-6) % WBC Morphology Comment RBC Morph Comment D-Dimer, Quantitative (0.0-400.0) ng/mL Sodium 134 L (140-148) mmol/L Potassium 3.8 (3.6-5.2) mmol/L Chloride 96 L (100-108) mmol/L Carbon Dioxide 25 (21-32) mmol/L Anion Gap 16.8 H (5.0-14.0) mmol/L BUN 18 D (7-18) mg/dL Creatinine 0.9 (0.6-1.0) mg/dL Est Cr Clr Drug Dosing 56.82 mL/min Estimated GFR (MDRD) > 60 (>60) Glucose 111 H (74-106) mg/dL Lactic Acid (0.4-2.0) mmol/L Calcium 9.2 (8.5-10.1) mg/dL Total Bilirubin (0.2-1.0) mg/dL Direct Bilirubin (0.0-0.2) mg/dL Indirect Bilirubin AST (15-37) U/L ALT (12-78) U/L Alkaline Phosphatase (46-116) U/L C-Reactive Protein (0.0-0.3) mg/dL Total Protein (6.4-8.2) g/dL Albumin (3.4-5.0) g/dL Globulin (2.3-3.5) g/dL Albumin/Globulin Ratio (1.2-2.2) Procalcitonin ng/mL TSH, Ultra Sensitive 1.830 (0.358-3.740) uIU/mL Urine Color (YELLOW) Urine Appearance (CLEAR) Urine pH (5.0-8.0) Ur Specific [place] (1.008-1.030) Urine Protein (NEGATIVE) mg/dL Urine Glucose (UA) (NEGATIVE) mg/dL Urine Ketones (NEGATIVE) mg/dL Urine Occult Blood (NEGATIVE) Urine Nitrite (NEGATIVE) Urine Bilirubin (NEGATIVE) Urine Urobilinogen (0.2-1.0) EU/dL Ur Leukocyte Esterase (NEGATIVE) Urine RBC (0-5) Urine WBC (0-5) Ur Epithelial Cells Amorphous Sediment Urine Bacteria Urine Mucus SARS-CoV-2 RNA (MARY) (NEGATIVE) 03/29/20 03/29/20 03/29/20 Range/Units 10:35 10:48 10:52 WBC (4.5-11.0) K/uL RBC (3.30-5.50) M/uL Hgb (12.0-15.0) g/dL Hct (36.0-48.0) % MCV (80-98) fL MCH (27-31) pg MCHC (32-36) % Plt Count (150-400) K/uL Neut % (Auto) (36-66) % Lymph % (Auto) (24-44) % Sebastian % (Auto) (2-6) % Eos % (Auto) (2-4) % Baso % (Auto) (0-1) % Neutrophils % (Manual) (36-66) % Band Neutrophils % (5-11) % Lymphocytes % (Manual) (24-44) % Monocytes % (Manual) (2-6) % WBC Morphology Comment RBC Morph Comment D-Dimer, Quantitative (0.0-400.0) ng/mL Sodium (140-148) mmol/L Potassium (3.6-5.2) mmol/L Chloride (100-108) mmol/L Carbon Dioxide (21-32) mmol/L Anion Gap (5.0-14.0) mmol/L BUN (7-18) mg/dL Creatinine (0.6-1.0) mg/dL Est Cr Clr Drug Dosing mL/min Estimated GFR (MDRD) (>60) Glucose (74-106) mg/dL Lactic Acid 2.1 H (0.4-2.0) mmol/L Calcium (8.5-10.1) mg/dL Total Bilirubin 0.5 (0.2-1.0) mg/dL Direct Bilirubin 0.15 (0.0-0.2) mg/dL Indirect Bilirubin 0.35 AST 23 (15-37) U/L ALT 29 (12-78) U/L Alkaline Phosphatase 84 (46-116) U/L C-Reactive Protein 2.41 H (0.0-0.3) mg/dL Total Protein 8.2 (6.4-8.2) g/dL Albumin 3.8 (3.4-5.0) g/dL Globulin 4.4 H (2.3-3.5) g/dL Albumin/Globulin Ratio 0.9 L (1.2-2.2) Procalcitonin ng/mL TSH, Ultra Sensitive (0.358-3.740) uIU/mL Urine Color (YELLOW) Urine Appearance (CLEAR) Urine pH (5.0-8.0) Ur Specific [place] (1.008-1.030) Urine Protein (NEGATIVE) mg/dL Urine Glucose (UA) (NEGATIVE) mg/dL Urine Ketones (NEGATIVE) mg/dL Urine Occult Blood (NEGATIVE) Urine Nitrite (NEGATIVE) Urine Bilirubin (NEGATIVE) Urine Urobilinogen (0.2-1.0) EU/dL Ur Leukocyte Esterase (NEGATIVE) Urine RBC (0-5) Urine WBC (0-5) Ur Epithelial Cells Amorphous Sediment Urine Bacteria Urine Mucus SARS-CoV-2 RNA (MARY) (NEGATIVE) 03/29/20 03/29/20 Range/Units 11:09 11:35 WBC (4.5-11.0) K/uL RBC (3.30-5.50) M/uL Hgb (12.0-15.0) g/dL Hct (36.0-48.0) % MCV (80-98) fL MCH (27-31) pg MCHC (32-36) % Plt Count (150-400) K/uL Neut % (Auto) (36-66) % Lymph % (Auto) (24-44) % Sebastian % (Auto) (2-6) % Eos % (Auto) (2-4) % Baso % (Auto) (0-1) % Neutrophils % (Manual) (36-66) % Band Neutrophils % (5-11) % Lymphocytes % (Manual) (24-44) % Monocytes % (Manual) (2-6) % WBC Morphology Comment RBC Morph Comment D-Dimer, Quantitative (0.0-400.0) ng/mL Sodium (140-148) mmol/L Potassium (3.6-5.2) mmol/L Chloride (100-108) mmol/L Carbon Dioxide (21-32) mmol/L Anion Gap (5.0-14.0) mmol/L BUN (7-18) mg/dL Creatinine (0.6-1.0) mg/dL Est Cr Clr Drug Dosing mL/min Estimated GFR (MDRD) (>60) Glucose (74-106) mg/dL Lactic Acid (0.4-2.0) mmol/L Calcium (8.5-10.1) mg/dL Total Bilirubin (0.2-1.0) mg/dL Direct Bilirubin (0.0-0.2) mg/dL Indirect Bilirubin AST (15-37) U/L ALT (12-78) U/L Alkaline Phosphatase (46-116) U/L C-Reactive Protein (0.0-0.3) mg/dL Total Protein (6.4-8.2) g/dL Albumin (3.4-5.0) g/dL Globulin (2.3-3.5) g/dL Albumin/Globulin Ratio (1.2-2.2) Procalcitonin ng/mL TSH, Ultra Sensitive (0.358-3.740) uIU/mL Urine Color Yellow (YELLOW) Urine Appearance Cloudy A (CLEAR) Urine pH 5.5 (5.0-8.0) Ur Specific [place] >= 1.030 (1.008-1.030) Urine Protein Negative (NEGATIVE) mg/dL Urine Glucose (UA) Negative (NEGATIVE) mg/dL Urine Ketones Negative (NEGATIVE) mg/dL Urine Occult Blood Trace-intact H (NEGATIVE) Urine Nitrite Negative (NEGATIVE) Urine Bilirubin Negative (NEGATIVE) Urine Urobilinogen 0.2 (0.2-1.0) EU/dL Ur Leukocyte Esterase Small H (NEGATIVE) Urine RBC 0-5 (0-5) Urine WBC 5-10 H (0-5) Ur Epithelial Cells Moderate Amorphous Sediment Not seen Urine Bacteria Moderate Urine Mucus Moderate SARS-CoV-2 RNA (MARY) Negative (NEGATIVE) Result Diagrams: 03/29/20 10:22 03/29/20 10:22 Sepsis Event Note - Evaluation Sepsis Screening Result: Possible Sepsis Risk - Focused Exam Vital Signs: Vital Signs Temp Pulse Resp BP Pulse Ox 03/29/20 12:48 94 24 H 141/77 H 94 L 03/29/20 10:00 112 H 16 152/91 H 03/29/20 09:46 97.9 F 119 H 16 93/75 95 03/29/20 09:40 97.9 F 119 H 16 93/75 95 Consult PN Assessment/Plan Procedures: Procedures ASSAY OF LACTIC ACID (12/31/17) ASSAY OF TROPONIN QUANT (12/31/17) COMPLETE CBC W/AUTO DIFF WBC (12/31/17) EMERGENCY DEPT VISIT (12/31/17) EMERGENCY DEPT VISIT (08/08/17) METABOLIC PANEL TOTAL CA (12/31/17) ROUTINE VENIPUNCTURE (12/31/17) THER/PROPH/DIAG INJ SC/IM (08/09/14) URINALYSIS AUTO W/SCOPE (12/31/17) X-RAY EXAM CHEST 2 VIEWS (12/31/17) Problem List Initiated/Reviewed/Updated: Yes Plan: ASSESSMENT AND RECOMMENDATIONS LEUKOCYTOSIS-associated with nausea, headache, lightheadedness/weakness and low- grade fever. White blood cell count is markedly elevated, not explained by findings on physical examination or evaluation in the emergency department. Of note is that her has similar symptoms and also leukocytosis. They deny any common exposures. CT scan of the chest unremarkable. Cough is been chronic and is not significantly worse. No other localized symptoms of infection have been identified. COVID test is negative. She is feeling somewhat better after hydration. -Discharged home, patient lives only a few blocks from the hospital and will return immediately if she develops increasing symptoms and/or fever -Repeat white blood cell count and differential in a.m. COUGH-present for the past month, no improvement with 2 courses of antibiotic therapy. Cough seems to originate in her throat and is likely related to allergies with postnasal drainage. CT scan of the chest was negative for any significant abnormality. Requesting Provider: [facility] [place] Date Consult Requested: 03/29/20 Reason for Consult: Leukocytosis, low-grade fever, nausea, lightheadedness Patient History Reviewed: Yes Notified Requestor: Yes
--- NOTE | 2020-03-30 10:17 | CR ---
CHEST: 2 view CLINICAL HISTORY:Cough COMPARISON:None FINDINGS: The heart size, pulmonary vascularity and hilar structures are normal. No infiltrate effusion or pneumothorax is seen. IMPRESSION: No acute cardiopulmonary process.
== END 2020-03-29 15:20 | disposition home or self-care (01) ==
LOC: JP.ED 09:28
DX: R05 Cough (principal); D72.829 Elevated white blood cell count, unspecified; I10 Essential (primary) hypertension; E03.9 Hypothyroidism, unspecified; E66.9 Obesity, unspecified; Z68.30 Body mass index [BMI] 30.0-30.9, adult; Z88.8 Allergy status to other drugs, medicaments and biological substances; Z79.899 Other long term (current) drug therapy; Z20.828 Contact with and (suspected) exposure to other viral communicable diseases
CPT/HCPCS: 36415; 71046; 71250; 80048; 80076; 81001; 83605; 84145; 84443; 85025; 85379; 86140; 87040; 87086; 87635; 94640; 96360; 96361; 99284; A9270; J7030; 99282; U0002

== ENCOUNTER 2020-04-15 19:50 | Emergency (ER) | payer BC, OTHER ==
[2020-04-15 20:16] VITALS: BP 156/93; PULSE 101
--- NOTE | 2020-04-15 20:22 | EDM.PDOC ---
<Nasima Hickman - Last Filed: 04/15/20 21:41> ED HPI GENERAL MEDICAL PROBLEM - General Chief Complaint: General Stated Complaint: NAUSEATED, MIGRAINES Time Seen by Provider: 04/15/20 20:25 Source of Information: Reports: Patient, Old Records, RN, RN Notes Reviewed, Significant Other - History of Present Illness INITIAL COMMENTS - FREE TEXT/NARRATIVE: Pt and spouse here tonight regarding the ongoing chronic cough, migraines, and nausea. Pt had seen Dr Langford as f/u from last ER visit for re-check on WBC. Was referred to Neurologist for insomnia and migraines. Per pt, it has only been 10 days since Neuro consult and migraines persist as does the cough. Pt indicates does tolerate PO liquids but does not have an appetite. Denies n/v, chills, sweats, or fever. Duration: Chronic, Recurring - Related Data Allergies Allergy/AdvReac Type Severity Reaction Status Date / Time lisinopril Allergy Rash Verified 03/29/20 09:43 Home Meds: Home Meds Acetaminophen/Butalbital/Caff [Fioricet 325-50-40 MG] 1 tab PO Q6H PRN 08/09/14 [History] Calcium Carbonate/Vitamin D3 [Calcium 500-Vit D3 200 Caplet] 1 tab PO DAILY 08/09/14 [History] Hydrochlorothiazide 25 mg PO DAILY 08/09/14 [History] Ketoconazole [Nizoral 2% Crm] 1 applic TOP DAILY 08/09/14 [History] Levothyroxine Sodium [Synthroid] 175 mcg PO DAILY 08/09/14 [History] Verapamil HCl 360 mg PO BEDTIME 08/09/14 [History] metroNIDAZOLE [metroNIDAZOLE 0.75% Cream] 1 applic TOP DAILY 08/09/14 [History] Estrogens, Conjugated [Premarin Vaginal Crm] 1 dose TOP DAILY 12/31/17 [History] SUMAtriptan [Imitrex] 50 mg PO ASDIRECTED PRN 04/15/20 [History] Zonisamide [Zonegran] 25 mg PO BEDTIME 04/15/20 [History] guaiFENesin/Codeine Phosphate [Virtussin AC 10-100 mg/5 ml Lq] 5 ml PO ASDIRECTED PRN 04/15/20 [History] ED ROS GENERAL - Review of Systems Review Of Systems: See Below Constitutional: Reports: Weakness, Decreased Appetite HEENT: Reports: No Symptoms Respiratory: Reports: Cough, Sputum (Dry cough despite cough medicaiton ) Cardiovascular: Reports: No Symptoms Endocrine: Reports: No Symptoms GI/Abdominal: Reports: Decreased Appetite : Reports: No Symptoms Musculoskeletal: Reports: No Symptoms Skin: Reports: No Symptoms Neurological: Reports: Weakness Psychiatric: Reports: No Symptoms Hematologic/Lymphatic: Reports: No Symptoms Immunologic: Reports: No Symptoms ED EXAM, GENERAL - Physical Exam Exam: See Below Exam Limited By: No Limitations General Appearance: Alert, WD/WN Head: Normocephalic Neck: Normal Inspection, Supple, Non-Tender, Full Range of Motion Respiratory/Chest: No Respiratory Distress, Lungs Clear, Normal Breath Sounds, No Accessory Muscle Use Cardiovascular: Normal Peripheral Pulses, Regular Rate, Rhythm, No Murmur, No Rub GI/Abdominal: Normal Bowel Sounds, Soft, Non-Tender (Female) Exam: Deferred Rectal (Female) Exam: Deferred Neurological: Alert, Oriented, CN II-XII Intact, Normal Cognition Psychiatric: Normal Affect, Normal Mood Skin Exam: Warm, Dry, Intact Lymphatic: No Adenopathy Course - Radiology Interpretation Free Text/Narrative:: Spoke with pt and advised CXR looked great. No acute processes. - Re-Assessments/Exams Free Text/Narrative Re-Assessment/Exam: 04/15/20 21:41 Will give 125 mg solu medrol IVP and 4 mg IVP Zofran before d/c home. Departure - Departure Disposition: Home, Self-Care 01 Condition: Good Clinical Impression: Viral syndrome, Cough Elevated WBC count Qualifiers: Eosinophilia type: unspecified eosinophilia - Discharge Information *PRESCRIPTION DRUG MONITORING PROGRAM REVIEWED*: Not Applicable *COPY OF PRESCRIPTION DRUG MONITORING REPORT IN PATIENT IFEOMA: Not Applicable Instructions: Cough, Adult, [id number], Hand Washing, [id number], Infection Prevention in the Home, Viral Illness, Adult Referrals: Rubens Langford MD [Primary Care Provider] - Forms: ED Department Discharge Care Plan Goals: Please take medications as prescribed from todays visit: The steroid dose pack will help with inflammation and reduce the inflammatory process that may be present. The Zofran ODT will help with nausea. Be sure to get plenty of rest and drink fluids. Allow for foods that will easily digest such as jello, soup, yogurt, broth,or meal supplements for calories. If the symptoms persist, please follow up with your provider and/or neurology. - Problem List & Annotations (1) Viral syndrome SNOMED Code(s): 98582035 Code(s): B34.9 - VIRAL INFECTION, UNSPECIFIED Status: Acute Priority: High - Assessment/Plan Plan: Please take medications as prescribed from todays visit: The steroid dose pack will help with inflammation and reduce the inflammatory process that may be present. The Zofran ODT will help with nausea. Be sure to get plenty of rest and drink fluids. Allow for foods that will easily digest such as jello, soup, yogurt, broth,or meal supplements for calories. If the symptoms persist, please follow up with your provider and/or neurology. 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: Neurological History: Reports: Migraines Endocrine/Metabolic History: Reports: Hypothyroidism, Obesity/BMI 30+ Hematologic History: Reports: Blood Transfusion(s) Dermatologic History: Reports: Eczema - Infectious Disease History Infectious Disease History: Reports: Measles, Mumps - Past Surgical History Head Surgeries/Procedures: Reports: None HEENT Surgical History: Reports: Eye Surgery, Tonsillectomy, Other (See Below) Other HEENT Surgeries/Procedures: benign tumor removed below left ear Cardiovascular Surgical History: Reports: None GI Surgical History: Reports: Colonoscopy Female Surgical History: Reports: Hysterectomy Endocrine Surgical History: Reports: None Neurological Surgical History: Reports: None Dermatological Surgical History: Reports: None Social & Family History - Caffeine Use Caffeine Use: Reports: Coffee, Soda Course - Vital Signs Last Recorded V/S: Last Vital Signs Temp 96.5 F L 04/15/20 20:29 Pulse 101 H 04/15/20 20:29 Resp 16 04/15/20 20:29 BP 156/93 H 04/15/20 20:29 Pulse Ox 98 04/15/20 20:29 - Orders/Labs/Meds Orders: Active Orders 24 hr Category Date Time Status CORONAVIRUS COVID-19, MARY Stat Lab 04/15/20 21:30 Received Labs: Laboratory Tests 04/15/20 04/15/20 Range/Units 21:07 21:07 WBC 15.4 H (4.5-11.0) K/uL RBC 5.22 (3.30-5.50) M/uL Hgb 15.7 H (12.0-15.0) g/dL Hct 45.4 (36.0-48.0) % MCV 87 (80-98) fL MCH 30 (27-31) pg MCHC 35 (32-36) % Plt Count 493 H (150-400) K/uL Neut % (Auto) 61 (36-66) % Lymph % (Auto) 25 (24-44) % Weld % (Auto) 13 H (2-6) % Eos % (Auto) 1 L (2-4) % Baso % (Auto) 0 (0-1) % Sodium 130 L (140-148) mmol/L Potassium 3.3 L (3.6-5.2) mmol/L Chloride 94 L (100-108) mmol/L Carbon Dioxide 26 (21-32) mmol/L Anion Gap 13.3 (5.0-14.0) mmol/L BUN 15 (7-18) mg/dL Creatinine 1.0 (0.6-1.0) mg/dL Est Cr Clr Drug Dosing 53.20 mL/min Estimated GFR (MDRD) 56 L (>60) Glucose 117 H (74-106) mg/dL Calcium 10.0 (8.5-10.1) mg/dL Total Bilirubin 0.4 (0.2-1.0) mg/dL AST 15 (15-37) U/L ALT 21 (12-78) U/L Alkaline Phosphatase 85 (46-116) U/L Total Protein 8.6 H (6.4-8.2) g/dL Albumin 3.9 (3.4-5.0) g/dL Globulin 4.7 H (2.3-3.5) g/dL Albumin/Globulin Ratio 0.8 L (1.2-2.2) Meds: Medications Discontinued Medications Generic Name Dose Route Start Last Admin Trade Name Freq PRN Reason Stop Dose Admin Methylprednisolone Sodium Succinate 125 mg 04/15/20 21:40 04/15/20 21:46 Solu-Medrol IVPUSH 04/15/20 21:41 125 mg ONETIME ONE Administration Ondansetron HCl 4 mg 04/15/20 21:39 04/15/20 21:46 Zofran IVPUSH 04/15/20 21:40 4 mg ONETIME ONE Administration - Re-Assessments/Exams Free Text/Narrative Re-Assessment/Exam: 04/15/20 22:02 Patient seen and evaluated for persistent bronchitis-like symptoms. Exam was fairly benign, lungs were clear and she was afebrile. White count is now 15,000, 2 view chest x-ray is still negative. A COVID was repeated and will be available in 2 to 3 days. Patient was given 125 mg of Solu-Medrol IV, will be placed on a Medrol Dosepak and also given Zofran for nausea and vomiting. I recommended holding the Imitrex as it does not seem to be doing anything and may be giving her side effects, she can continue her other medications. Recheck early next week if not improving satisfactorily or return anytime if worsening. Departure - Departure Time of Disposition: 22:12 Sepsis Event Note (ED) - Focused Exam Vital Signs: Vital Signs Temp Pulse Resp BP Pulse Ox 04/15/20 20:29 96.5 F L 101 H 16 156/93 H 98 04/15/20 20:13 96.5 F L 101 H 16 156/93 H 98 - My Orders Last 24 Hours: My Active Orders 04/15/20 21:30 CORONAVIRUS COVID-19, MARY Stat - Assessment/Plan Last 24 Hours: My Active Orders 04/15/20 21:30 CORONAVIRUS COVID-19, MARY Stat Attestation - Student - Attestation Statement Attestation Statement: I personally performed or re-performed the physical examination and medical decision making. I have verified all student documentation or findings, including history, physical exam and/or medical decision making.
--- NOTE | 2020-04-15 21:33 | CRLCR ---
Indication: Cough. Technique: PA and lateral views of the chest. Comparison: March 29, 2020. Findings: The heart is normal in size. The lungs are clear. No infiltrate, pleural effusion, or pneumothorax is identified. Impression: No acute cardiopulmonary process Dictated by Katy Conway MD @ Apr 15 2020 9:32PM Signed by Dr. Katy Conway @ Apr 15 2020 9:33PM
[2020-04-15] MEDS ORDERED: Ondansetron 4 MG/2 ML SDV IVPUSH ONE (21:39)
[2020-04-15] MEDS ORDERED: methylPREDNISolone Sodium Succinate 125 MG/2 ML SDV IVPUSH ONE (21:40)
== END 2020-04-15 22:12 | disposition home or self-care (01) ==
LOC: JP.ED 19:50
DX: D72.19 Other eosinophilia (principal); B34.9 Viral infection, unspecified; R11.0 Nausea; R53.1 Weakness; Z88.8 Allergy status to other drugs, medicaments and biological substances; Z79.899 Other long term (current) drug therapy; Z20.828 Contact with and (suspected) exposure to other viral communicable diseases
CPT/HCPCS: 36415; 71046; 80053; 85025; 87635; 96374; 96375; 99283; J2405; J2930; U0002

== ENCOUNTER 2021-08-10 06:43 | Emergency (ER) | payer BC, MEDICARE ==
[2021-08-10] MEDS: Sodium Chloride 0.9% 1,000 ML IV SCH (07:52)
[2021-08-10 08:56] LABS: CORONAVIRUS COVID-19 NAA POSITIVE (NEGATIVE)
[2021-08-10 09:30] VITALS: BP 120/57; PULSE 112
== END 2021-08-10 10:55 | disposition home or self-care (01) ==
LOC: JP.ED 06:43
DX: U07.1 COVID-19 (principal); I10 Essential (primary) hypertension; J45.909 Unspecified asthma, uncomplicated; E03.9 Hypothyroidism, unspecified; E66.9 Obesity, unspecified; Z68.32 Body mass index [BMI] 32.0-32.9, adult; Z88.8 Allergy status to other drugs, medicaments and biological substances; Z79.899 Other long term (current) drug therapy; Z79.82 Long term (current) use of aspirin
CPT/HCPCS: 0241U; 36415; 71045; 71045-26; 80048; 85025; 87081; 87880-QW; 96374; 99284-25; J1790; J7030

== ENCOUNTER 2021-09-13 11:24 | Emergency (ER) | payer BC, MEDICARE ==
[2021-09-13 11:33] VITALS: BP 154/89; PULSE 89
[2021-09-13] MEDS ORDERED: EPINEPHrine 1 MG/ML SDV IM ONE (11:44)
[2021-09-13] MEDS ORDERED: diphenhydrAMINE 50 MG/ML SDV IM ONE (11:44)
[2021-09-13] MEDS ORDERED: methylPREDNISolone Sodium Succinate 125 MG/2 ML SDV IM ONE (11:44)
[2021-09-13] MEDS ORDERED: Sodium Chloride 0.9% 10 ML Syringe FLUSH PRN (13:52)
[2021-09-13] MEDS ORDERED: Sodium Chloride 0.9% 1,000 ML IV SCH (14:00)
[2021-09-13] MEDS ORDERED: Iopamidol 755 Mg/ML 100 ML Bottle IV SCH (14:00)
[2021-09-13] MEDS ORDERED: Sodium Chloride 0.9% 75 ML IV ONE (14:00)
== END 2021-09-13 16:43 | disposition home or self-care (01) ==
LOC: JP.ED 11:24
DX: T78.40XA Allergy, unspecified, initial encounter (principal); I10 Essential (primary) hypertension; J45.909 Unspecified asthma, uncomplicated; E03.9 Hypothyroidism, unspecified; E66.9 Obesity, unspecified; Z68.29 Body mass index [BMI] 29.0-29.9, adult; Z88.8 Allergy status to other drugs, medicaments and biological substances; Z79.82 Long term (current) use of aspirin; Z79.899 Other long term (current) drug therapy
CPT/HCPCS: 36415; 80048; 85025; 96372; 99282; 99285-25; J0171; J1200; J2930; J7030

== ENCOUNTER 2022-09-23 04:49 | Emergency (ER) | payer BC, OTHER ==
[2022-09-23] MEDS ORDERED: Sodium Chloride 0.9% 10 ML Syringe FLUSH PRN (05:08)
[2022-09-23] MEDS ORDERED: Ondansetron 4 MG/2 ML SDV IVPUSH ONE (05:17)
[2022-09-23 06:09] LABS: ESTIMATED GFR 50 mL/min (>60)
[2022-09-23 06:19] LABS: CORONAVIRUS COVID-19 NAA POSITIVE (NEGATIVE)
[2022-09-23 07:13] VITALS: BP 137/68; PULSE 94
== END 2022-09-23 07:15 | disposition home or self-care (01) ==
LOC: JP.ED 04:49
DX: U07.1 COVID-19 (principal); R11.14 Bilious vomiting; I10 Essential (primary) hypertension; J45.909 Unspecified asthma, uncomplicated; E03.9 Hypothyroidism, unspecified; E66.9 Obesity, unspecified; Z68.28 Body mass index [BMI] 28.0-28.9, adult; Z88.8 Allergy status to other drugs, medicaments and biological substances; Z91.040 Latex allergy status; Z79.82 Long term (current) use of aspirin; Z79.899 Other long term (current) drug therapy
CPT/HCPCS: 0241U; 36415; 71046; 80053; 85025; 86140; 96374; 99285; J2405; 99283